=== PATIENT | male | born 1965 | race Caucasian/White ===

== ENCOUNTER 2016-10-06 08:32 | Emergency (ER) | payer SELFPAY ==
[2016-10-06 08:43] VITALS: BP 130/91; TEMP 97.7; O2SAT 96
--- NOTE | 2016-10-06 08:48 | ED.PDOC ---
History of Present Illness - General Chief Complaint: Skin/Abrasion/Tear Stated Complaint: possible infection on chin Time Seen by Provider: 10/06/16 08:40 Source: patient Exam Limitations: no limitations - History of Present Illness Initial Comments: the patient is a 50-year-old male presenting to the emergency room secondary to pustulosis forming on his right chin. He reports that he cut himself shaving [place] at that spot approximately 3 days ago. He has not been having any fevers. No other areas were pustulosis is formed. He has had fever blisters in the past. Not in this area however. He also reports that he is out of his blood pressure medication. He does not have a primary care doctor yet in this area. Severity: moderate Improving Factors: nothing Worsening Factors: nothing Associated Symptoms: denies symptoms Allergies/Adverse Reactions: Allergies NSAIDs Allergy (Verified 10/06/16 08:43) Home Medications: Ambulatory Orders Lisinopril & Hydrochlorothiazi [Lisinopril/Hctz 10-12.5 mg] 1 tab PO DAILY 10/06 Lisinopril & Hydrochlorothiazi [Lisinopril/Hctz 10-12.5 mg] 1 tab PO DAILY #30 tab 10/06/16 Sulfa/Trimeth 800/160 (Ds) Tab [Bactrim DS Tab] 1 ea PO BID #10 tab 10/06/16 Review of Systems - Review of Systems Constitutional: States: no symptoms reported EENTM: States: see HPI Respiratory: States: no symptoms reported Cardiology: States: no symptoms reported Gastrointestinal/Abdominal: States: no symptoms reported Genitourinary: States: no symptoms reported Musculoskeletal: States: no symptoms reported Skin: States: see HPI Neurological: States: no symptoms reported Endocrine: States: no symptoms reported All other Systems: No Change from Baseline Past Medical History (General) - Patient Medical History Hx Congestive Heart Failure: No Hx Diabetes: No Surgical History: no surgical history - Vaccination History Hx Tetanus, Diphtheria Vaccination: Yes Hx Influenza Vaccination: No - Social History Hx Tobacco Use: Yes Family Medical History - Family History Father Family History: Unknown Living Status: Unknown Physical Exam - Physical Exam General Appearance: Alert, Comfortable, No apparent distress Eye Exam: bilateral normal Ears, Nose, Throat: hearing grossly normal, normal ENT inspection, normal pharynx Neck: full range of motion, supple Respiratory: no respiratory distress, no accessory muscle use Cardiovascular/Chest: normal peripheral pulses, no edema Extremity: normal range of motion, no pedal edema, normal capillary refill 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 The patient will be covered with Bactrim for the next 5 days. If the patient is failing to respond or the lesions are worsening, then a change in antibiotics and possibly empiric treatment for HSV may be warranted. ER warnings were given. He is not to shave until the lesion is resolved. The patient will be written for 1 month of his blood pressure medications. He does need to obtain a primary care doctor. Departure - Departure Clinical Impression: Impetigo Disposition: Discharge to Home or Self Care Condition: Fair Departure Forms: ED Discharge - Pt. Copy, Patient Portal Self Enrollment Instructions: DI for Impetigo Diet: regular diet Activity: increase activity as tolerated Prescriptions: Lisinopril & Hydrochlorothiazi [Lisinopril/Hctz 10-12.5 mg] 1 tab PO DAILY #30 tab Sulfa/Trimeth 800/160 (Ds) Tab [Bactrim DS Tab] 1 ea PO BID #10 tab Home Medications: Ambulatory Orders Lisinopril & Hydrochlorothiazi [Lisinopril/Hctz 10-12.5 mg] 1 tab PO DAILY 10/06 Lisinopril & Hydrochlorothiazi [Lisinopril/Hctz 10-12.5 mg] 1 tab PO DAILY #30 tab 10/06/16 Sulfa/Trimeth 800/160 (Ds) Tab [Bactrim DS Tab] 1 ea PO BID #10 tab 10/06/16 Additional Instructions: the patient is a 50-year-old male presenting with what appears to be impetigo at the site where he cut himself shaving a few days ago on his right chin. The patient will be covered with Bactrim for the next 5 days. If the patient is failing to respond or the lesions are worsening, then a change in antibiotics and possibly empiric treatment for HSV may be warranted. ER warnings were given. He is not to shave until the lesion is resolved. The patient will be written for 1 month of his blood pressure medications. He does need to obtain a primary care doctor.
== END 2016-10-06 08:55 | disposition home or self-care (01) ==
LOC: ER 08:32
DX: L01.00 Impetigo, unspecified (principal); I10 Essential (primary) hypertension; Z88.6 Allergy status to analgesic agent; Z79.899 Other long term (current) drug therapy